=== PATIENT | female | born 1960 | race Asian ===

== ENCOUNTER 2019-07-30 12:47 | Outpatient (CLI) | payer OTHER ==
--- NOTE | 2019-08-03 09:04 | Mammography Report ---
Reason: SCREENING MAMMO Procedure Date: 07/30/2019 Accession Number: [id number] / [id number] Procedure: MGN - Screening Mammo Dig Bilat CPT Code: Final Report FULL RESULT: EXAM: Screening Mammo Dig Bilat DATE: 07/30/2019 1:19 PM CLINICAL HISTORY: Screening encounter. Family history of breast cancer in the mother at the age of 79. TECHNIQUE: (B) - Bilateral CC and MLO views were obtained. COMPARISON: 07/11/2018 through 05/26/2015. PARENCHYMAL PATTERN: (D) - The breast(s) demonstrate(s) heterogeneously dense fibroglandular parenchyma. FINDINGS: There are no suspicious masses, calcifications, or areas of distortion. IMPRESSION: Negative examination. BI-RADS category 1. RECOMMENDATION: (ANNUAL) - Recommend routine annual screening mammography. BI-RADS CATEGORY: (1) - Negative. STANDARD QUALIFYING STATEMENTS: 1. This examination was not reviewed with the aid of Computer-Aided Detection (CAD). 2. A negative or benign imaging report should not preclude biopsy if clinically suspicious findings are present. 3. Dense breasts may obscure an underlying neoplasm. 4. This examination was reviewed without the aid of 3D breast imaging (tomosynthesis).
== END 2019-07-30 12:48 | disposition home or self-care (01) ==
LOC: DI.N 12:47
DX: Z12.31 Encounter for screening mammogram for malignant neoplasm of breast (principal); Z80.3 Family history of malignant neoplasm of breast
CPT/HCPCS: 77067

== ENCOUNTER 2020-09-12 15:29 | Outpatient (CLI) | payer OTHER ==
--- NOTE | 2020-09-15 11:05 | Mammography Report ---
BILATERAL DIGITAL SCREENING MAMMOGRAM 3D/2D: 09/12/2020 CLINICAL: Family history of breast cancer. Routine screening. Comparison is made to exams dated: 07/30/2019 mammogram - [facility], 07/11/2018 ma mmogram, 05/26/2015 mammogram, 05/09/2014 mammogram, 04/19/2013 mammogram, and 03/16/2012 mammogram - [facility]. The tissue of both breasts is heterogeneously dense. This may lower the sens itivity of mammography. No significant masses, calcifications, or other findings are seen in either breast. There has been no significant interval change. IMPRESSION: NEGATIVE There is no mammographic evidence of malignancy. A 1 year screening mammogram is recommended. This exam was interpreted at Station ID: [id number]. NOTE: For mammograms, a report in lay terms will be sent to the patient. Approximately 15% of breast malignancies will not be visualized mammographically. In the management of a palpable breast mass, a negative mammogram must not discourage biopsy of a clinically suspicious lesion. Electronically Signed By: Caity george/adalgisa:09/12/2020 16:32:17 ACR BI-RADS Category 1: Negative 3341F PARENCHYMAL PATTERN: (D) - The breast(s) demonstrate(s) heterogeneously dense fibroglandular vladimir taylor. BI-RADS CATEGORY: (1) - 1 RECOMMENDATION: (ANNUAL) - Recommend routine annual screening mammography. [id number] 1 year screening LATERALITY: (B)
== END 2020-09-12 15:30 | disposition home or self-care (01) ==
LOC: DI.N 15:29
DX: Z12.31 Encounter for screening mammogram for malignant neoplasm of breast (principal); Z80.3 Family history of malignant neoplasm of breast
CPT/HCPCS: 77067